=== PATIENT | male | born 1960 | race Caucasian/White ===

== ENCOUNTER 2021-05-16 04:44 | Emergency (ER) | payer SELFPAY ==
[2021-05-16 04:48] VITALS: BMI 31.3
[2021-05-16] MEDS ORDERED: ACETAMINOPHEN 1000 MG/100 ML BAG IVPB ONE (05:44)
[2021-05-16] MEDS ORDERED: CLINDAMYCIN 600MG PREMIX IVPB 600 MG/50 ML BAG IVPB ONE (05:46)
[2021-05-16 06:15] LABS: BASO % 0.5 % (0-2.0); EOS % 0.8 % (0-4.5); HEMATOCRIT 39.9 % (35.4-49); LYMPH % 14.6 % (8-40); MCH 28.2 pg (25.7-33.7); MCHC 32.7 g/dl (32.0-35.9); MEAN CELL VOLUME 86.3 fl (80-96); MEAN PLT VOLUME 10.7 fl (7.5-11.1); MONO % 9.8 % (3.8-10.2); NEUT % 74.3 % (42.8-82.8); PLATELET COUNT 309 10^3/uL (134-434); RBC 4.62 M/mm3 (4.00-5.60); RDW 13.8 % (11.9-15.9); WHITE BLOOD COUNT 8.7 K/mm3 (4.0-10.0)
[2021-05-16 06:36] LABS: CALCIUM 8.7 mg/dL (8.5-10.1)
[2021-05-16 06:37] LABS: ALBUMIN 3.6 g/dl (3.4-5.0); BLOOD UREA NITROGEN 7.7 mg/dL (7-18)
[2021-05-16 06:40] LABS: CREATININE 0.9 mg/dL (0.55-1.3)
[2021-05-16 06:42] LABS: BILIRUBIN,TOTAL 0.4 mg/dL (0.2-1); TOT PROT 7.3 g/dl (6.4-8.2)
[2021-05-16 09:56] VITALS: BP 148/84; PULSE 74; TEMP 98.3
== END 2021-05-16 09:52 | disposition home or self-care (01) ==
LOC: JER 04:44
PROC: 3E0333Z Introduction of Anti-inflammatory into Peripheral Vein, Percutaneous Approach (ICD-10-PCS; principal; 2021-05-16)
PROC: 3E03329 Introduction of Other Anti-infective into Peripheral Vein, Percutaneous Approach (ICD-10-PCS; 2021-05-16)
DX: L03.115 Cellulitis of right lower limb (principal)
CPT/HCPCS: 36415; 73610-TC-LT-FY; 73630-TC-LT; 80053; 85025; 93971-TC; 99285-25; C9803; J0131; U0003; U0005